=== PATIENT | female | born 1980 | race Caucasian/White ===

== ENCOUNTER 2016-09-20 20:07 | Emergency (ER) | payer SELFPAY ==
[~2016-09-20] VITALS: Ht 160 cm; Wt 98.0 kg
[2016-09-20 20:09] VITALS: BP 137/73; PULSE 82; RESP 16; TEMP 98.7; O2SAT 96
== END 2016-09-20 23:39 | disposition left against medical advice (07) ==
LOC: NED 20:07
DX: N39.0 Urinary tract infection, site not specified (principal)
CPT/HCPCS: 99281